=== PATIENT | female | born 1950 | race Caucasian/White ===

== ENCOUNTER 2016-08-15 22:53 | Emergency (ER) | payer MEDICARE, BC ==
[2016-08-15 23:46] VITALS: BP 210/87
[2016-08-16] MEDS ORDERED: Ondansetron 4 MG/2 ML SDV IVPUSH ONE (00:15)
[2016-08-16] MEDS ORDERED: Ketorolac 60 MG/2 ML SDV IVPUSH ONE (00:15)
[2016-08-16] MEDS ORDERED: Sodium Chloride 0.9% 1,000 ML IV SCH (00:15)
[2016-08-16] MEDS ORDERED: Tamsulosin 0.4 MG Cap.ER PO ONE (00:16)
--- NOTE | 2016-08-16 02:39 | EDM.PDOC ---
ED HPI GENERAL MEDICAL PROBLEM - General Chief Complaint: Abdominal Pain Stated Complaint: LT FLANK PAIN/VOMITING Time Seen by Provider: 08/16/16 00:10 Source of Information: Reports: Patient History Limitations: Reports: No Limitations - History of Present Illness INITIAL COMMENTS - FREE TEXT/NARRATIVE: History of present illness: [66-year-old female presenting with history of kidney stones now presents with left flank pain. She feels that she's having another kidney stone attack. The last one was 8 mm and she apparently had shock therapy for that one. She's had no fevers or chills she is little nauseated no vomiting. She is in severe pain] Review of systems: As per history of present illness and below otherwise all systems reviewed and negative. Past medical history: As per history of present illness and as reviewed below otherwise noncontributory. Surgical history: As per history of present illness and as reviewed below otherwise noncontributory. Social history: No reported history of drug or alcohol abuse. Family history: As per history of present illness and as reviewed below otherwise noncontributory. Physical exam: HEENT: Atraumatic, normocephalic, pupils reactive, negative for conjunctival pallor or scleral icterus, mucous membranes moist, throat clear, neck supple, nontender, trachea midline. Lungs: Clear to auscultation, breath sounds equal bilaterally, chest nontender. Heart: S1S2, regular, negative for clicks, rubs, or JVD. Abdomen: She has tenderness to palpation and percussion of the left flank and left gutter. Pelvis: Stable nontender. Genitourinary: Deferred. Rectal: Deferred. Extremities: Atraumatic, negative for cords or calf pain. Neurovascular unremarkable. Neuro: Awake, alert, oriented. Cranial nerves II through XII unremarkable. Cerebellum unremarkable. Motor and sensory unremarkable throughout. Exam nonfocal. Diagnostics: [CT is demonstrating a 5-6 mm calculus within the left mid ureter. See the report for details.] Therapeutics: [We've given her IV fluids IV Dilaudid IV Toradol IV Zofran and also a dose of Flomax. She is feeling much better] Impression: [Left-sided nephrolithiasis] Plan: [We'll provide equipment for straining her urine and syndrome with Percocet and she will followup with her primary doctor Barron Soliz. This stone is smaller than the last one and so it is possible that she could pass it but if not she will need referral to urology of course.] Definitive disposition and diagnosis as appropriate pending reevaluation and review of above. Left Flank Pain Score (Numeric/FACES): 9 - Related Data Allergies Allergy/AdvReac Type Severity Reaction Status Date / Time Penicillins Allergy Cannot Verified 02/03/15 05:30 Remember Home Meds: Home Meds Aspirin/Calcium Carbonate/Mag [Aspirin Buffered 325 mg Tab] 1 tab PO DAILY 02/03 [History] Cholecalciferol (Vitamin D3) [Vitamin D3] 1 cap PO DAILY 02/03/15 [History] Cyanocobalamin (Vitamin B12) [Vitamin B12] 1 tab PO DAILY 02/03/15 [History] Fluticasone/Salmeterol [Advair 100-50] 1 puff IH ASDIRECTED PRN 02/03/15 [ History] Lisinopril [Lisinopril] 10 mg PO DAILY 02/03/15 [History] Simvastatin [Zocor] 20 mg PO DAILY 02/03/15 [History] metFORMIN [Glucophage] 1 tab PO TID 02/03/15 [History] Past Medical History HEENT History: Reports: Impaired Vision Respiratory History: Reports: Asthma Other Respiratory History: reactive airway Genitourinary History: Reports: Renal Calculus [employer] PERSON History: Reports: Neurological History: Reports: Other (See Below) Other Neuro History: yin's palsey Endocrine/Metabolic History: Reports: Diabetes, Type II - Past Surgical History GI Surgical History: Reports: Cholecystectomy Female Surgical History: Reports: Hysterectomy, Other (See Below) Other Female Surgeries/Procedures: bladder sling Social & Family History - Tobacco Use Smoking Status *Q: Never Smoker - Caffeine Use Caffeine Use: Reports: None - Recreational Drug Use Recreational Drug Use: No ED ROS GENERAL - Review of Systems Review Of Systems: ROS reveals no pertinent complaints other than HPI. ED EXAM, RENAL/ - Physical Exam Exam: See Below Course - Vital Signs Last Recorded V/S: Last Vital Signs Temp 36.3 C 08/15/16 23:44 Pulse 71 08/15/16 23:44 Resp 18 08/15/16 23:44 BP 210/87 H 08/15/16 23:44 Pulse Ox 100 08/15/16 23:44 - Orders/Labs/Meds Orders: Active Orders 24 hr Category Date Time Status Abdomen Pelvis wo Cont [CT] Stat Exams 08/16/16 00:17 Taken Sodium Chloride 0.9% [Normal Saline] 1,000 ml Med 08/16/16 00:15 Active IV ASDIRECTED Medication Orders Sodium Chloride (Normal Saline) 1,000 mls @ 500 mls/hr IV ASDIRECTED MUSA Last Admin: 08/16/16 00:45 Dose: 500 mls/hr Labs: Laboratory Tests 08/16/16 08/16/16 08/16/16 Range/Units 00:43 00:43 01:08 WBC 10.5 (4.5-11.0) K/uL RBC 4.21 (3.30-5.50) M/uL Hgb 11.9 L (12.0-15.0) g/dL Hct 35.9 L (36.0-48.0) % MCV 85 (80-98) fL MCH 28 (27-31) pg MCHC 33 (32-36) % Plt Count 301 (150-400) K/uL Neut % (Auto) 81 H (36-66) % Lymph % (Auto) 13 L (24-44) % [place] % (Auto) 5 (2-6) % Eos % (Auto) 1 L (2-4) % Baso % (Auto) 0 (0-1) % Sodium 139 L (140-148) mmol/L Potassium 4.3 (3.6-5.2) mmol/L Chloride 102 (100-108) mmol/L Carbon Dioxide 24 (21-32) mmol/L Anion Gap 17.3 H (5.0-14.0) mmol/L BUN 18 (7-18) mg/dL Creatinine 1.1 H (0.6-1.0) mg/dL Est Cr Clr Drug Dosing 39.25 mL/min Estimated GFR (MDRD) 50 L (>60) Glucose 170 H (74-106) mg/dL Calcium 8.8 (8.5-10.1) mg/dL Total Bilirubin 0.2 (0.2-1.0) mg/dL AST 16 (15-37) U/L ALT 18 (12-78) U/L Alkaline Phosphatase 72 (46-116) U/L Total Protein 6.9 (6.4-8.2) g/dL Albumin 3.5 (3.4-5.0) g/dL Globulin 3.4 (2.3-3.5) g/dL Albumin/Globulin Ratio 1.0 L (1.2-2.2) Urine Color Yellow Urine Appearance Cloudy Urine pH 6.0 (4.5-8.0) Ur Specific [place] 1.020 (1.008-1.030) Urine Protein Negative (NEGATIVE) mg/dL Urine Glucose (UA) Normal (NEGATIVE) mg/dL Urine Ketones 15 H (NEGATIVE) mg/dL Urine Occult Blood Large (NEGATIVE) Urine Nitrite Negative (NEGATIVE) Urine Bilirubin Negative (NEGATIVE) Urine Urobilinogen Normal (NORMAL) mg/dL Ur Leukocyte Esterase Negative (NEGATIVE) Urine RBC Packed H (0-5) Urine WBC 0-5 (0-5) Ur Epithelial Cells Few Amorphous Sediment Rare Urine Bacteria Rare Urine Mucus Not seen Meds: Medications Generic Name Dose Route Start Last Admin Trade Name Freq PRN Reason Stop Dose Admin Sodium Chloride 1,000 mls @ 500 mls/hr 08/16/16 00:15 08/16/16 00:45 Normal Saline IV 500 mls/hr ASDIRECTED MUSA Administration Discontinued Medications Generic Name Dose Route Start Last Admin Trade Name Freq PRN Reason Stop Dose Admin Ketorolac Tromethamine 30 mg 08/16/16 00:15 08/16/16 00:47 Toradol IVPUSH 08/16/16 00:16 30 mg ONETIME ONE Administration Ondansetron HCl 4 mg 08/16/16 00:15 08/16/16 00:50 Zofran IVPUSH 08/16/16 00:16 4 mg ONETIME ONE Administration Tamsulosin HCl 0.4 mg 08/16/16 00:16 08/16/16 00:51 Flomax PO 08/16/16 00:17 0.4 mg ONETIME ONE Administration Departure - Departure Time of Disposition: 02:38 Disposition: Home, Self-Care 01 Condition: good Clinical Impression: Nephrolithiasis - Discharge Information Forms: ED Department Discharge Additional Instructions: Please make an appointment to see your primary doctor so that he can assist you in managing this kidney stone and timing a referral to a urologist if this is needed. - My Orders Last 24 Hours: My Active Orders 08/16/16 00:15 Sodium Chloride 0.9% [Normal Saline] 1,000 ml IV ASDIRECTED 08/16/16 00:17 Abdomen Pelvis wo Cont [CT] Stat - Assessment/Plan Last 24 Hours: My Active Orders 08/16/16 00:15 Sodium Chloride 0.9% [Normal Saline] 1,000 ml IV ASDIRECTED 08/16/16 00:17 Abdomen Pelvis wo Cont [CT] Stat
== END 2016-08-16 02:48 | disposition home or self-care (01) ==
LOC: JP.ED 22:53
DX: N13.2 Hydronephrosis with renal and ureteral calculous obstruction (principal); J45.909 Unspecified asthma, uncomplicated; E11.9 Type 2 diabetes mellitus without complications; Z90.49 Acquired absence of other specified parts of digestive tract; Z88.0 Allergy status to penicillin; Z79.82 Long term (current) use of aspirin; Z79.899 Other long term (current) drug therapy; Z90.710 Acquired absence of both cervix and uterus
CPT/HCPCS: 36415; 74176; 80053; 81001; 85025; 96374; 96375; 99284; A9270; J1885; J2405; J7040

== ENCOUNTER 2023-10-28 17:33 | Emergency (ER) | payer MEDICARE ==
[2023-10-28] MEDS: Ketorolac 15 MG/ML SDV IVPUSH ONE (18:35)
[2023-10-28 18:37] LABS: BASOPHILS ABSOLUTE AUTO 0.09 K/uL (0.00-0.10); BASOPHILS PERCENT AUTO 0.7 % (0.1-1.3); EOSINOPHILS ABSOLUTE AUTO 0.46 K/uL (0.00-0.40); EOSINOPHILS PERCENT AUTO 3.8 % (0.0-5.4); HEMATOCRIT 34.2 % (34.3-46.0); HEMOGLOBIN 11.6 g/dL (11.2-15.5); IMMATURE GRAN ABSOLUTE AUTO 0.13 K/uL (0.00-0.23); IMMATURE GRAN PERCENT AUTO 1.1 % (0.0-0.7); LYMPHOCYTES ABSOLUTE AUTO 1.84 K/uL (0.8-3.3); LYMPHOCYTES PERCENT AUTO 15.1 % (11.4-47.7); MEAN CORPUSCULAR HEMOGLOBIN 27.8 pg (31.6-35.5); MEAN CORPUSCULAR HGB CONC 33.9 g/dL (31.6-35.5); MONOCYTES ABSOLUTE AUTO 0.51 K/uL (0.20-0.90); MONOCYTES PERCENT AUTO 4.2 % (3.3-12.6); NEUTROPHILS ABSOLUTE AUTO 9.17 K/uL (1.0-7.6); NEUTROPHILS PERCENT AUTO 75.1 % (40.0-78.1); PLATELET COUNT,PLT 300 K/uL (130-375); RED BLOOD CELL COUNT 4.17 M/uL (3.77-5.24); WHITE BLOOD CELL COUNT,WBC 12.2 K/uL (3.2-11.0)
[2023-10-28 18:44] LABS: A/G RATIO 1.1 (1.2-2.2); ALANINE AMINOTRANSFERASE,ALT 20 U/L (12-78); ALBUMIN 3.8 g/dL (3.4-5.0); ALKALINE PHOSPHATASE 85 U/L (46-116); ASPARTATE AMNIOTRANSFERASE,AST 19 U/L (15-37); BILIRUBIN DIRECT 0.05 mg/dL (0.0-0.2); BILIRUBIN TOTAL 0.3 mg/dL (0.2-1.0); BLOOD UREA NITROGEN,BUN 24 mg/dL (7-18); CALCIUM 9.8 mg/dL (8.5-10.1); CARBON DIOXIDE,CO2 19 mmol/L (21-32); CHLORIDE,CL 100 mmol/L (100-108); CREATININE 1.5 mg/dL (0.6-1.0); EST CRCL DRUG DOSING (CG) 24.83 mL/min; ESTIMATED GFR 36 mL/min (>60); GLUCOSE RANDOM 235 mg/dL (74-106); POTASSIUM,K 4.6 mmol/L (3.6-5.2); PROTEIN TOTAL,TP 7.4 g/dL (6.4-8.2); SODIUM,NA 139 mmol/L (140-148)
[2023-10-28 18:45] LABS: ANION GAP 24.6 mmol/L (5.0-14.0)
[2023-10-28 18:48] LABS: APPEARANCE,URINE SLIGHTLY CLOUDY (CLEAR); BILIRUBIN,URINE NEGATIVE (NEGATIVE); COLOR,URINE YELLOW (YELLOW); GLUCOSE,URINE 250 mg/dL (NEGATIVE); KETONES,URINE 15 mg/dL (NEGATIVE); LEUKOCYTE ESTERASE,URINE NEGATIVE (NEGATIVE); NITRITE,URINE NEGATIVE (NEGATIVE); OCCULT BLOOD,URINE LARGE (NEGATIVE); PH,URINE 5.5 (5.0-8.0); PROTEIN,URINE 100 mg/dL (NEGATIVE); UROBILINOGEN,URINE 0.2 EU/dL (0.2-1.0)
[2023-10-28 18:54] LABS: AMORPHOUS SEDIMENT,URINE NOT SEEN; EPITHELIAL CELLS,URINE RARE; MUCUS,URINE NOT SEEN; RBC,URINE PACKED (0-5); WBC,URINE 0-5 (0-5)
[2023-10-28 20:02] VITALS: BP 150/68; PULSE 91
== END 2023-10-28 20:05 | disposition home or self-care (01) ==
LOC: JP.ED 17:33
DX: N13.2 Hydronephrosis with renal and ureteral calculous obstruction (principal); I10 Essential (primary) hypertension; E78.00 Pure hypercholesterolemia, unspecified; E11.9 Type 2 diabetes mellitus without complications; Z86.16 Personal history of COVID-19; Z90.49 Acquired absence of other specified parts of digestive tract; Z90.710 Acquired absence of both cervix and uterus; Z79.899 Other long term (current) drug therapy; Z79.84 Long term (current) use of oral hypoglycemic drugs; Z79.82 Long term (current) use of aspirin; Z88.0 Allergy status to penicillin
CPT/HCPCS: 36415; 74176; 80048; 80076; 81001; 83690; 85025; 96374; 99284; J1885